=== PATIENT | female | born 1980 | race Caucasian/White ===

== ENCOUNTER 2017-08-31 15:49 | Outpatient (CLI) | payer OTHER ==
[2017-08-31 18:42] LABS: ADD MAN DIFF? NO
[2017-08-31 18:46] LABS: WHITE BLOOD COUNT 9.5 10^3/ul (4.8-10.8)
[2017-08-31 18:46] LABS: BASOPHILS % 0.3 % (0.0-2.0); EOSINOPHILS # 0.2 10^3/ul (0.0-0.5); EOSINOPHILS % 1.7 % (0.0-7.0); HEMATOCRIT 29.5 % (37.0-47.0); HEMOGLOBIN 9.6 g/dl (12.0-16.0); LYMPHOCYTES # 2.2 10^3/ul (0.8-2.9); LYMPHOCYTES % 23.6 % (15.0-51.0); MEAN CORPUSCULAR HGB CONC 32.5 g/dl (32.0-37.0); MEAN CORPUSCULAR VOLUME 95.2 fl (82.0-101.0); MEAN PLATELET VOLUME 12.2 fl (7.4-10.4); MONOCYTE # 0.6 10^3/ul (0.3-0.9); MONOCYTES % 6.3 % (0.0-11.0); NEUTROPHIL # 6.4 10^3/ul (1.6-7.5); NEUTROPHILS % 67.5 % (39.0-77.0); PLATELET COUNT 236 10^3/UL (140-415); RED CELL DISTRIBUTION WIDTH 12.6 % (11.5-14.5)
[2017-08-31 19:10] LABS: RUPTURE FETAL MEMBRANES NEGATIVE (NEGATIVE)
[2017-08-31] MEDS: LACTATED RINGER'S 1,000 ML IV (19:34)
[2017-08-31] MEDS: TERBUTALINE 1 MG/ML INJ SC (20:28)
[2017-08-31] MEDS ORDERED: TERBUTALINE 1 MG/ML INJ SC (21:00)
== END 2017-08-31 22:15 | disposition home or self-care (01) ==
LOC: OBT 15:49 → L-D 15:52 → OBT 22:15
DX: O62.9 Abnormality of forces of labor, unspecified (principal); O09.523 Supervision of elderly multigravida, third trimester; Z3A.29 29 weeks gestation of pregnancy
CPT/HCPCS: 36415; 76817; 76818; 84112; 85025; 96360

== ENCOUNTER 2017-11-09 12:39 | Inpatient (IN) | payer OTHER ==
[2017-11-09] MEDS ORDERED: OXYTOCIN 30 UNITS/LR 500 ML IV ×3 (13:00→19:00)
[2017-11-09] MEDS ORDERED: MISOPROSTOL 200 MCG TAB PR ×2 (13:00→19:00)
[2017-11-09] MEDS ORDERED: METHYLERGONOVINE 0.2 MG INJ IM ×2 (13:00→19:00)
[2017-11-09] MEDS ORDERED: CARBOPROST 250 MCG INJ IM ×2 (13:00→19:00)
[2017-11-09] MEDS: LACTATED RINGER'S 1,000 ML IV ×2 (13:06→22:13)
[2017-11-09 13:19] LABS: ADD MAN DIFF? NO
[2017-11-09 13:23] LABS: ABNORMAL IP MESSAGE 1; BASOPHILS % 0.4 % (0.0-2.0); EOSINOPHILS # 0.1 10^3/ul (0.0-0.5); EOSINOPHILS % 1.4 % (0.0-7.0); HEMATOCRIT 32.4 % (37.0-47.0); HEMOGLOBIN 10.5 g/dl (12.0-16.0); LYMPHOCYTES # 1.5 10^3/ul (0.8-2.9); LYMPHOCYTES % 22.1 % (15.0-51.0); MEAN CORPUSCULAR HEMOGLOBIN 29.1 pg (29.0-33.0); MEAN CORPUSCULAR HGB CONC 32.4 g/dl (32.0-37.0); MEAN CORPUSCULAR VOLUME 89.8 fl (82.0-101.0); MEAN PLATELET VOLUME 13.2 fl (7.4-10.4); MONOCYTE # 0.4 10^3/ul (0.3-0.9); MONOCYTES % 6.4 % (0.0-11.0); NEUTROPHIL # 4.8 10^3/ul (1.6-7.5); NEUTROPHILS % 69.3 % (39.0-77.0); PLATELET COUNT 138 10^3/UL (140-415); RED BLOOD COUNT 3.61 10^6/ul (4.20-5.40); RED CELL DISTRIBUTION WIDTH 18.2 % (11.5-14.5)
[2017-11-09 13:23] LABS: WHITE BLOOD COUNT 6.9 10^3/ul (4.8-10.8)
[2017-11-09 13:40] LABS: INR 0.91; PROTIME 12.3 Sec (11.9-14.9)
[2017-11-09 13:41] LABS: PARTIAL THROMBOPLASTIN TIME 23.2 Sec (25.0-35.0)
[2017-11-09 14:13] LABS: HEPATITIS B SURFACE ANTIGEN NEGATIVE (NEGATIVE)
[2017-11-09] MEDS: CEFAZOLIN 2 GM/50 ML (PMX) 50 ML IV ×2 (14:48→22:12)
[2017-11-09] MEDS ORDERED: EPHEDrine SULFATE 50 MG/5 ML SYG (14:54)
[2017-11-09] MEDS ORDERED: morphine SULFATE/PF (10 MG/10 ML) INJ (14:54)
[2017-11-09] MEDS ORDERED: METOCLOPRAMIDE 10 MG INJ (14:54)
[2017-11-09] MEDS ORDERED: ONDANSETRON 4 MG INJ (14:54)
[2017-11-09] MEDS ORDERED: BUPIVACAINE 0.75%/DEXT (SPINAL) 2 ML INJ (14:55)
[2017-11-09] MEDS ORDERED: OXYTOCIN 10 UNIT INJ ×2 (14:55→15:33)
[2017-11-09 15:19] LABS: RAPID PLASMA REAGIN NONREACTIVE (NR)
[2017-11-09] MEDS: OXYTOCIN 30 UNITS/LR 500 ML IV (16:25)
[2017-11-09] MEDS ORDERED: DIPHENHYDRAMINE 50 MG INJ IV (16:30)
[2017-11-09] MEDS ORDERED: EPHEDrine SULFATE 50 MG/5 ML SYG IV (16:30)
[2017-11-09] MEDS ORDERED: KETOROLAC 30 MG INJ IV (16:30)
[2017-11-09] MEDS ORDERED: NALOXONE (0.4 MG/ML) INJ IV (16:30)
[2017-11-09] MEDS ORDERED: ONDANSETRON 4 MG INJ IV (16:30)
[2017-11-09] MEDS ORDERED: morphine 2 MG INJ IV ×2 (16:30)
[2017-11-09] MEDS ORDERED: HYDROCODONE/APAP (5/325) TAB PO (19:00)
[2017-11-09] MEDS: SENNA/DOCUSATE NA (8.6MG/50MG) TAB PO (21:00)
[2017-11-09] MEDS: morphine SULFATE/PF (10 MG/10 ML) INJ SPINAL (22:26)
[2017-11-10] MEDS: LACTATED RINGER'S 1,000 ML IV ×3 (00:09→18:48)
[2017-11-10] MEDS: CEFAZOLIN 2 GM/50 ML (PMX) 50 ML IV ×2 (03:58→10:47)
[2017-11-10] MEDS: CLINDAMYCIN 300 MG CAP PO ×4 (05:42→18:52)
[2017-11-10] MEDS: SENNA/DOCUSATE NA (8.6MG/50MG) TAB PO ×2 (08:44→21:40)
[2017-11-10 09:20] LABS: ADD MAN DIFF? NO
[2017-11-10 09:22] LABS: ABNORMAL IP MESSAGE 1; BASOPHILS % 0.2 % (0.0-2.0); EOSINOPHILS % 0.3 % (0.0-7.0); HEMOGLOBIN 8.7 g/dl (12.0-16.0); LYMPHOCYTES # 1.5 10^3/ul (0.8-2.9); MEAN CORPUSCULAR HEMOGLOBIN 28.8 pg (29.0-33.0); MEAN CORPUSCULAR HGB CONC 32.2 g/dl (32.0-37.0); MEAN CORPUSCULAR VOLUME 89.4 fl (82.0-101.0); MEAN PLATELET VOLUME 13.4 fl (7.4-10.4); MONOCYTE # 0.5 10^3/ul (0.3-0.9); MONOCYTES % 5.6 % (0.0-11.0); NEUTROPHIL # 7.1 10^3/ul (1.6-7.5); NEUTROPHILS % 77.5 % (39.0-77.0); PLATELET COUNT 117 10^3/UL (140-415); RED BLOOD COUNT 3.02 10^6/ul (4.20-5.40); RED CELL DISTRIBUTION WIDTH 18.4 % (11.5-14.5)
[2017-11-10 09:22] LABS: WHITE BLOOD COUNT 9.2 10^3/ul (4.8-10.8)
[2017-11-10 09:26] LABS: POSITIVE DIFF @See below
[2017-11-10] MEDS: BISACODYL 10 MG SUPP PR (16:46)
[2017-11-10] MEDS: LANOLIN 7 GM TUBE TOP (16:46)
[2017-11-10] MEDS: OXYCODONE/ACETAMINOPHEN (5/325) TAB PO (16:47)
[2017-11-10] MEDS: IBUPROFEN 800 MG TAB PO (21:40)
[2017-11-11] MEDS: CLINDAMYCIN 300 MG CAP PO ×5 (00:10→23:41)
[2017-11-11] MEDS: OXYCODONE/ACETAMINOPHEN (5/325) TAB PO ×5 (00:11→23:43)
[2017-11-11] MEDS: LACTATED RINGER'S 1,000 ML IV ×3 (02:48→18:48)
[2017-11-11] MEDS: IBUPROFEN 800 MG TAB PO ×3 (05:27→20:55)
[2017-11-11] MEDS: SENNA/DOCUSATE NA (8.6MG/50MG) TAB PO ×2 (08:00→20:54)
[2017-11-11] MEDS: NA PHOSPHATE/BIPHOS 133 ML ENEMA PR (12:32)
[2017-11-12] MEDS: LACTATED RINGER'S 1,000 ML IV (02:48)
[2017-11-12] MEDS: CLINDAMYCIN 300 MG CAP PO ×2 (05:23→11:51)
[2017-11-12] MEDS: IBUPROFEN 800 MG TAB PO ×2 (05:23→14:13)
[2017-11-12] MEDS: SENNA/DOCUSATE NA (8.6MG/50MG) TAB PO (10:31)
[2017-11-12] MEDS: DIPHTH/TET/ACEL PERTUSS (ADULT) 0.5 ML VIAL IM* (10:38)
[2017-11-12] MEDS: MEASLES,MUMPS,RUBELLA VACCINE INJ SC* (10:39)
[2017-11-12] MEDS: OXYCODONE/ACETAMINOPHEN (5/325) TAB PO (11:53)
== END 2017-11-12 18:05 | disposition home or self-care (01) | DRG 766 ==
LOC: L-D 12:39 → PP1 18:40
PROVIDERS: Obstetrics & Gynecology
PROC: 10D00Z1 Extraction of Products of Conception, Low, Open Approach (ICD-10-PCS; principal; 2017-11-09 14:00)
PROC: 3E033VJ Introduction of Other Hormone into Peripheral Vein, Percutaneous Approach (ICD-10-PCS; 2017-11-09 14:00)
DX: O34.211 Maternal care for low transverse scar from previous cesarean delivery (principal); Z3A.38 38 weeks gestation of pregnancy; Z37.0 Single live birth
CPT/HCPCS: 74019; 85025; 85610; 85730; 86592; 86850; 86900; 86901; 87340; 99464

== ENCOUNTER 2017-12-07 14:39 | Emergency (ER) | payer OTHER ==
[2017-12-07] MEDS: ACETAMINOPHEN 325 MG TAB PO (15:40)
[2017-12-07 15:47] LABS: ADD MAN DIFF? NO
[2017-12-07 15:52] LABS: BASOPHILS % 0.3 % (0.0-2.0); EOSINOPHILS # 0.2 10^3/ul (0.0-0.5); EOSINOPHILS % 2.4 % (0.0-7.0); HEMATOCRIT 38.6 % (37.0-47.0); LYMPHOCYTES # 1.8 10^3/ul (0.8-2.9); LYMPHOCYTES % 18.7 % (15.0-51.0); MEAN CORPUSCULAR HEMOGLOBIN 29.9 pg (29.0-33.0); MEAN CORPUSCULAR HGB CONC 33.7 g/dl (32.0-37.0); MEAN CORPUSCULAR VOLUME 88.7 fl (82.0-101.0); MEAN PLATELET VOLUME 11.9 fl (7.4-10.4); MONOCYTE # 0.7 10^3/ul (0.3-0.9); MONOCYTES % 6.7 % (0.0-11.0); NEUTROPHIL # 6.9 10^3/ul (1.6-7.5); NEUTROPHILS % 71.4 % (39.0-77.0); PLATELET COUNT 201 10^3/UL (140-415); RED BLOOD COUNT 4.35 10^6/ul (4.20-5.40); RED CELL DISTRIBUTION WIDTH 16.1 % (11.5-14.5)
[2017-12-07 15:52] LABS: WHITE BLOOD COUNT 9.7 10^3/ul (4.8-10.8)
[2017-12-07 15:59] LABS: ADD UMIC YES; UR ASCORBIC ACID NEGATIVE (NEGATIVE); UR BILIRUBIN (Dip) NEGATIVE (NEGATIVE); UR BLOOD (Dip) 3+ mg/dL (NEGATIVE); UR CLARITY CLEAR (CLEAR); UR COLOR YELLOW (YELLOW); UR GLUCOSE (Dip) NEGATIVE (NEGATIVE); UR KETONES (Dip) NEGATIVE (NEGATIVE); UR LEUKOCYTE ESTERASE (Dip) 2+ Leu/ul (NEGATIVE); UR NITRITE (Dip) NEGATIVE (NEGATIVE); UR RBC 9 /HPF (0-5); UR SPECIFIC GRAVITY (Dip) 1.009 (1.003-1.030); UR SQUAMOUS EPITHELIAL CELL FEW /HPF (FEW); UR TOTAL PROTEIN (Dip) NEGATIVE (NEGATIVE); UR UROBILINOGEN (Dip) NEGATIVE (NEGATIVE); UR WBC 11 /HPF (0-5)
[2017-12-07 16:10] LABS: ALANINE AMINOTRANSFERASE 69 IU/L (13-69); ALBUMIN/GLOBULIN RATIO 1.08; ALKALINE PHOSPHATASE 99 IU/L (42-121); ANION GAP 16 (8-16); ASPARTATE AMINO TRANSFERASE 52 IU/L (15-46); BILIRUBIN,INDIRECT 0.4 mg/dl (0-1.1); BILIRUBIN,TOTAL 0.4 mg/dl (0.2-1.3); BLOOD UREA NITROGEN 9 mg/dl (7-20); CALCIUM 9.1 mg/dl (8.4-10.2); CARBON DIOXIDE 28 mmol/L (21-31); CHLORIDE 101 mmol/L (97-110); GLUCOSE 102 mg/dl (70-220); LIPASE 96 U/L (23-300); POTASSIUM 4.1 mmol/L (3.5-5.1); SODIUM 141 mmol/L (135-144); TOTAL PROTEIN 7.7 g/dl (6.1-8.1)
== END 2017-12-07 18:02 | disposition home or self-care (01) ==
LOC: FTE 14:39
DX: O91.22 Nonpurulent mastitis associated with the puerperium (principal); O86.20 Urinary tract infection following delivery, unspecified; B96.89 Other specified bacterial agents as the cause of diseases classified elsewhere
CPT/HCPCS: 36415; 76641; 76641-50; 76830; 76856; 80053; 81001; 83690; 85025; 99285-25